=== PATIENT | female | born 1945 | race Caucasian/White ===

== ENCOUNTER 2023-03-10 11:03 | Inpatient (IN) | payer OTHER, BC ==
[2023-03-10] MEDS ORDERED: SODIUM CHLORIDE 0.9% 500 ML INFUS.BAG IV ONE (11:11)
[2023-03-10] MEDS ORDERED: ACETAMINOPHEN 1000 MG/100 ML BAG IVPB ONE (11:14)
[2023-03-10] MEDS ORDERED: ACETAMINOPHEN INJECTION 100 ML IVPB ONE (12:19)
[2023-03-10 12:32] LABS: HEMATOCRIT 40.1 % (32.4-45.2); HEMOGLOBIN 13.4 G/dL (10.7-15.3); MCH 31.1 pg (25.7-33.7); MCHC 33.5 g/dl (32.0-36.0); MEAN CELL VOLUME 92.8 fl (80-96); MEAN PLT VOLUME 8.6 fl (7.5-11.1); PLATELET COUNT 178.3 10^3/uL (134-434); RBC 4.32 10^6/uL (3.60-5.2); RDW 14.7 % (11.6-15.6); WHITE BLOOD COUNT 8.7 10^3/uL (4.0-10.8)
[2023-03-10 12:56] LABS: ALBUMIN 3.7 g/dl (3.4-5.0); BILIRUBIN,TOTAL 0.3 mg/dl (0.2-1); CALCIUM 8.4 mg/dl (8.5-10.1); CREATININE 1.6 mg/dl (0.6-1.3); POTASSIUM 3.8 mmol/L (3.5-5.1); TOT PROT 6.5 g/dl (6.4-8.2)
[2023-03-10 14:28] LABS: PLATELET ESTIMATE ADEQUATE
[2023-03-10] MEDS ORDERED: OSELTAMIVIR PHOSPHATE 75 MG CAPSULE PO ONE (14:49)
[2023-03-10] MEDS ORDERED: ACETAMINOPHEN 325 MG TABLET (FP) PO PRN (14:50)
[2023-03-10] MEDS ORDERED: SODIUM CHLORIDE NASAL SPRAY 44 ML BOTTLE NS PRN (16:25)
[2023-03-10] MEDS ORDERED: METHOCARBAMOL 500 MG TABLET PO PRN (16:29)
[2023-03-10] MEDS: ALBUTEROL SO4 2.5/IPRATROPIUM 0.5 INH SOL 3 ML VIAL.NEB. NEB SCH ×2 (16:41→21:27)
[2023-03-10] MEDS ORDERED: LACTATED RINGERS SOLUTION 1,000 ML/1,000 ML INFUS.BAG IV SCH (17:15)
[2023-03-10 19:47] VITALS: BMI 25.8
[2023-03-10] MEDS: TOPIRAMATE 25 MG TABLET PO SCH ×2 (21:20→23:34)
[2023-03-10] MEDS: OSELTAMIVIR PHOSPHATE 30 MG CAPSULE PO SCH (21:36)
[2023-03-10] MEDS: HEPARIN NA (PORCINE) 5,000 UNITS/ML 1ML VIAL SQ SCH (21:36)
[2023-03-10] MEDS: TOPIRAMATE 100 MG TABLET PO SCH ×2 (21:37→23:34)
[2023-03-10] MEDS ORDERED: GABAPENTIN 300 MG CAPSULE PO SCH (22:00)
[2023-03-10] MEDS ORDERED: METHOCARBAMOL 500 MG TABLET PO SCH (22:00)
[2023-03-11] MEDS ORDERED: SUMAtriptan SUCCINATE 50 MG TABLET PO SCH (05:15)
[2023-03-11] MEDS ORDERED: LEVOTHYROXINE NA 88 MCG TABLET (FP) PO SCH (07:00)
[2023-03-11] MEDS ORDERED: guaiFENesin/D-METHORPHAN HB 10 ML UNIT-DOSE CUPS PO PRN (07:30)
[2023-03-11] MEDS ORDERED: ONDANSETRON 4 MG/2 ML VIAL IVPUSH PRN (07:36)
[2023-03-11 08:50] LABS: HEMATOCRIT 35.3 % (32.4-45.2); MCH 31.3 pg (25.7-33.7); MCHC 34.1 g/dl (32.0-36.0); MEAN CELL VOLUME 91.9 fl (80-96); MEAN PLT VOLUME 8.6 fl (7.5-11.1); PLATELET COUNT 163.8 10^3/uL (134-434); RBC 3.84 10^6/uL (3.60-5.2); RDW 15.1 % (11.6-15.6); WHITE BLOOD COUNT 5.8 10^3/uL (4.0-10.8)
[2023-03-11] MEDS: ALBUTEROL SO4 2.5/IPRATROPIUM 0.5 INH SOL 3 ML VIAL.NEB. NEB SCH ×3 (08:50→16:28)
[2023-03-11 09:05] LABS: ALBUMIN 3.3 g/dl (3.4-5.0); BILIRUBIN,TOTAL 0.3 mg/dl (0.2-1); CALCIUM 7.9 mg/dl (8.5-10.1); CREATININE 1.2 mg/dl (0.6-1.3); PHOSPHOROUS 1.8 (2.5-4.9); POTASSIUM 3.7 mmol/L (3.5-5.1); TOT PROT 5.7 g/dl (6.4-8.2)
[2023-03-11] MEDS ORDERED: POTASSIUM PHOSPHATE 15 MM in SODIUM CHLORIDE 250 ML IVPB ONE (09:15)
[2023-03-11] MEDS: HEPARIN NA (PORCINE) 5,000 UNITS/ML 1ML VIAL SQ SCH (09:18)
[2023-03-11] MEDS: OSELTAMIVIR PHOSPHATE 30 MG CAPSULE PO SCH (09:18)
[2023-03-11] MEDS ORDERED: NICOTINE 7 MG/24 HOURS TOPICAL PATCH TD SCH (10:00)
[2023-03-11] MEDS ORDERED: CHOLECALCIFEROL (VIT D3) 1,000 UNIT (25 MCG) TABLET PO SCH (10:00)
[2023-03-11 14:57] VITALS: BP 101/53; RESP 17; TEMP 97.5
[2023-03-11 14:58] VITALS: PULSE 80
[2023-03-11] MEDS ORDERED: TOPIRAMATE 50 MG PO SCH (22:00)
[2023-03-11] MEDS ORDERED: TOPIRAMATE 100 MG PO SCH (22:00)
== END 2023-03-11 18:42 | disposition home or self-care (01) | DRG 195 ==
LOC: FER 11:03 → FM/S 14:48
PROVIDERS: ADMIT Internal Medicine; ATTEND Internal Medicine
DX: J10.1 Influenza due to other identified influenza virus with other respiratory manifestations (principal); G40.909 Epilepsy, unspecified, not intractable, without status epilepticus; I48.91 Unspecified atrial fibrillation; M79.7 Fibromyalgia; E06.3 Autoimmune thyroiditis; M35.00 Sjogren syndrome, unspecified; F17.210 Nicotine dependence, cigarettes, uncomplicated; I25.2 Old myocardial infarction; R09.02 Hypoxemia
CPT/HCPCS: 0241U-QW; 36415; 71045-TC-FY; 80053; 83735; 84100; 85025; 85027; 93005; 94640; 99285-25; J1644